=== PATIENT | female | born 1950 | race Caucasian/White ===

== ENCOUNTER 2020-11-07 01:37 | Emergency (ER) | payer BC, MEDICARE ==
--- NOTE | 2020-11-07 02:11 | EDM.PDOC ---
ED HPI GENERAL MEDICAL PROBLEM - General Chief Complaint: Genitourinary Problem Stated Complaint: Possible UTI Time Seen by Provider: 11/07/20 02:00 Source of Information: Reports: Patient History Limitations: Reports: No Limitations - History of Present Illness INITIAL COMMENTS - FREE TEXT/NARRATIVE: patient presented to the ER with a c/o suprapubic discomfort. no fever or chills. No nausea or emesis. reports burning in urine started tonight. no flank pain. also reports changes in her stool color - described grayish in color for the last 2 weeks. last colonoscopy was 3 years ago - benign polyps. no diarrhea. some bloating. no blood in the stool Onset: Today - Related Data Allergies Allergy/AdvReac Type Severity Reaction Status Date / Time lidocaine AdvReac Confusion Verified 06/07/20 14:49 Home Meds: Home Meds Losartan [Cozaar] 100 mg PO DAILY 09/24/17 [History] hydroCHLOROthiazide [Hydrochlorothiazide] 50 mg PO DAILY 09/24/17 [History] Cholecalciferol (Vitamin D3) [Vitamin D3] 2,000 unit PO DAILY 11/18/17 [History] Escitalopram [Lexapro] 10 mg PO DAILY 08/09/18 [History] Magnesium 200 mg PO DAILY 08/09/18 [History] Acetaminophen [Tylenol] 650 mg PO Q4H PRN #90 tablet 08/13/18 [Rx] Omeprazole Magnesium [Prilosec Otc] 20 mg PO DAILY PRN 04/21/20 [History] Past Medical History HEENT History: Reports: Cataract, Impaired Vision Other HEENT History: wears glasses Cardiovascular History: Reports: Arrhythmia, Hypertension Gastrointestinal History: Reports: GERD, Hemorrhoids Genitourinary History: Reports: Other (See Below) Other Genitourinary History: bladder and rectal prolapse repair METERMAN History: Reports: Musculoskeletal History: Reports: Arthritis, Back Pain, Chronic, Fibromyalgia, Osteoporosis Neurological History: Reports: None Psychiatric History: Reports: Depression - Infectious Disease History Infectious Disease History: Reports: Chicken Pox, Measles, Mumps, Rubella, Shingles - Past Surgical History Head Surgeries/Procedures: Reports: None Social & Family History - Family History HEENT: Reports: Cataract Cardiac: Reports: Arrhythmia, [place] Respiratory: Reports: None GI: Reports: Cholelithiasis : Reports: None OBGYN: Reports: None Musculoskeletal: Reports: Arthritis Neurological: Reports: CVA Psychiatric: Reports: Depression Endocrine/Metabolic: Reports: None Hematologic: Reports: None Immunologic: Reports: None Oncologic: Reports: Lung - Caffeine Use Caffeine Use: Reports: Coffee Caffeine Use Comment: 2-3 cups/daily ED ROS GENERAL - Review of Systems Review Of Systems: See Below Constitutional: Reports: No Symptoms HEENT: Reports: No Symptoms Respiratory: Reports: No Symptoms Cardiovascular: Reports: No Symptoms Endocrine: Reports: No Symptoms GI/Abdominal: Reports: Abdominal Pain, Constipation : Reports: Dysuria, Frequency, Urgency. Denies: Flank Pain Musculoskeletal: Reports: No Symptoms Skin: Reports: No Symptoms Neurological: Reports: No Symptoms ED EXAM, GI/ABD - Physical Exam Exam: See Below Exam Limited By: No Limitations General Appearance: Alert, No Apparent Distress Respiratory/Chest: No Respiratory Distress Cardiovascular: Normal Peripheral Pulses GI/Abdominal Exam: Normal Bowel Sounds, Soft, Non-Tender, Other (mild suprapubic tenderness to palpation) Extremities: Normal Inspection Neurological: Alert Course - Vital Signs Last Recorded V/S: Last Vital Signs Temp 36.3 C 11/07/20 01:40 Pulse 77 11/07/20 01:40 Resp 18 11/07/20 01:40 BP 134/65 11/07/20 01:40 Pulse Ox 98 11/07/20 01:40 - Orders/Labs/Meds Labs: Laboratory Tests 11/07/20 11/07/20 11/07/20 Range/Units 02:10 02:10 02:19 WBC 8.6 (4.0-11.0) K/uL RBC 4.06 (3.80-5.80) M/uL Hgb 12.2 (11.5-16.5) g/dL Hct 35.7 L (37.0-47.0) % MCV 88 (76-96) fL MCH 30.0 (27.0-32.0) pg MCHC 34.2 (31.0-35.0) g/dL RDW 13.4 (11.0-16.0) % Plt Count 201 (150-500) K/uL MPV 9.9 (6.0-10.0) fL Neut % (Auto) 70.8 H (45.0-70.0) % Lymph % (Auto) 16.9 L (20.0-40.0) % Bay % (Auto) 10.9 H (3.0-10.0) % Eos % (Auto) 0.9 L (1.0-5.0) % Baso % (Auto) 0.5 (0.0-0.5) % Neut # (Auto) 6.11 (2.00-7.50) K/uL Lymph # (Auto) 1.46 L (1.50-4.00) K/uL Bay # (Auto) 0.94 H (0.20-0.80) K/uL Eos # (Auto) 0.08 (0.04-0.40) K/uL Baso # (Auto) 0.04 (0.02-0.10) K/uL Sodium 144 (136-145) mmol/L Potassium 3.5 (3.5-5.1) mmol/L Chloride 103 (98-107) mmol/L Carbon Dioxide 33.4 H (21.0-32.0) mmol/L Anion Gap 11.1 (5.0-15.0) mmol/L BUN 13 (8-26) mg/dL Creatinine 1.06 H (0.55-1.02) mg/dL Est Cr Clr Drug Dosing TNP Estimated GFR (MDRD) 51 L (>60) MLS/MIN BUN/Creatinine Ratio 12.3 (6-25) Glucose 164 H (74-100) mg/dL Calcium 8.5 (8.5-10.1) mg/dL Total Bilirubin 0.4 (0.0-1.0) mg/dL AST 14 L (15-37) U/L ALT 21 (12-78) U/L Alkaline Phosphatase 68 (46-116) U/L Total Protein 6.9 (6.4-8.2) g/dL Albumin 3.6 (3.4-5.0) g/dL Globulin 3.3 (2.2-4.2) g/dL Albumin/Globulin Ratio 1.1 (0.8-2.0) Urine Color Yellow Urine Appearance Slightly cloudy (CLEAR) Urine pH 6.0 (5.0-8.0) Ur Specific [place] >= 1.030 (1.003-1.030) Urine Protein >=300 H (NEGATIVE) mg/dL Urine Glucose (UA) Negative (NEGATIVE) mg/dL Urine Ketones Trace H (NEGATIVE) mg/dL Urine Occult Blood Large H (NEGATIVE) Urine Nitrite Negative (NEGATIVE) Urine Bilirubin Small H (NEGATIVE) Urine Urobilinogen 1.0 (0.2-1.0) E.U./dL Ur Leukocyte Esterase Small H (NEGATIVE) Urine RBC 40-50 H /HPF Urine WBC 0-5 H /HPF Ur Epithelial Cells Few /HPF Urine Bacteria Few /HPF Urine Mucus Few /HPF - Re-Assessments/Exams Free Text/Narrative Re-Assessment/Exam: vitals WNL labs were ordered - no e/o leukocytosis. normal LFTs and bili. positive for UTI ++ bacteria, WBC 11/07/20 15:29 will start antibiotics therapy for UTI and probably a small kidney stone that has passes. pain is well controlled and patient not requesting anything for pain Departure - Departure Time of Disposition: 08:00 Disposition: Home, Self-Care 01 Condition: Good Clinical Impression: UTI, Urinary tract infectious disease, Kidney stone - Discharge Information *PRESCRIPTION DRUG MONITORING PROGRAM REVIEWED*: Not Applicable *COPY OF PRESCRIPTION DRUG MONITORING REPORT IN PATIENT JALEN: Not Applicable Referrals: PCP,None [Primary Care Provider] - Forms: ED Department Discharge - Problem List & Annotations (1) Kidney stone SNOMED Code(s): 91136861 Code(s): N20.0 - CALCULUS OF KIDNEY Status: Acute Priority: Medium (2) UTI, Urinary tract infectious disease SNOMED Code(s): 14504667 Code(s): N39.0 - URINARY TRACT INFECTION, SITE NOT SPECIFIED Status: Acute Priority: Medium - Problem List Review Problem List Initiated/Reviewed/Updated: Yes - Assessment/Plan Plan: - take abx as prescribed - increase fluids intake - follow up with the PCP as needed in 1-2 weeks - return to the ER if any concerns or if symptoms got worse
[2020-11-07] MEDS ORDERED: Ciprofloxacin 500 MG Tab ONE (03:00)
[2020-11-07 06:01] VITALS: BP 134/65; PULSE 77
== END 2020-11-07 03:57 | disposition home or self-care (01) ==
LOC: LB.ED 01:37
DX: N39.0 Urinary tract infection, site not specified (principal); N20.0 Calculus of kidney; I10 Essential (primary) hypertension; K21.9 Gastro-esophageal reflux disease without esophagitis; Z88.4 Allergy status to anesthetic agent; Z79.899 Other long term (current) drug therapy
CPT/HCPCS: 36415; 80053; 81001; 85025; 99283; A9270-GY